=== PATIENT | male | born 1995 | race Caucasian/White ===

== ENCOUNTER 2020-09-21 09:52 | Outpatient (REF) | payer OTHER, SELFPAY ==
--- NOTE | ~2020-09-21 | FL_ITS ---
EXAMINATION: FL BARIUM SWALLOW CLINICAL INFORMATION: Dysphagia. COMPARISON: None TECHNIQUE: Barium swallow examination is performed using fluoroscopic evaluation in addition to multiple fluoroscopic spot views. The patient is imaged both upright and prone and using both thick and thin sulfate along with effervescent granules. Fluoroscopy time: 1.1 minutes DAP: 16.9 Gycm2 Images: 45 FINDINGS: Following oral administration of thick barium, turkey and thin barium, there is normal propagation of bolus from the oral cavity through the pharynx, esophagus into stomach without any evidence of obstruction, narrowing or stricture. On placing patient supine and prone lying and oral administration of thin barium, there is a prominent distal esophageal mucosa suggestive of esophagitis. On placing patient supine and prone, there is small hiatal hernia with mild gastroesophageal reflux. FL/FL barium swallow IMPRESSION: Small hiatal hernia with mild gastroesophageal reflux. Distal esophagitis. Consider endoscopy.
== END 2020-09-21 09:53 | disposition home or self-care (01) ==
LOC: HO.XRAY 09:52
PROVIDERS: PCP Physician Assistant; Visit Provider Physician Assistant
DX: R13.14 Dysphagia, pharyngoesophageal phase (principal)
CPT/HCPCS: 74220

== ENCOUNTER 2020-11-19 07:59 | Outpatient (REF) | payer OTHER, SELFPAY ==
[2020-11-19 13:31] LABS: H Pylori Breath Test Negative (Negative)
== END 2020-11-19 08:00 | disposition home or self-care (01) ==
LOC: HO.LNP 07:59
PROVIDERS: PCP Physician Assistant; Visit Provider Physician Assistant
DX: R13.14 Dysphagia, pharyngoesophageal phase (principal); K21.9 Gastro-esophageal reflux disease without esophagitis
CPT/HCPCS: 83013; 99202

== ENCOUNTER 2021-01-27 09:59 | Day surgery (SDC) | payer OTHER, SELFPAY ==
[2021-01-21 11:51] VITALS: BMI 29.7
--- NOTE | 2021-01-26 14:14 | HO.ANESPROP2 ---
Documented by User: Matilde Hodgson NP 01/26/21 14:15 HPI - Anesthesia Eval Consult details Narrative: 26yo M for Upper Endoscopy [facility] Active Problems Active Problems: All Active Problems (Updated 11/19/20 @ 08:37 by Em Garza PA-C) Acid reflux (Acute) Esophagitis (Acute) Folliculitis (Acute) Annual physical exam (Acute) Screening for hypothyroidism (Acute) Screening for diabetes mellitus (DM) (Acute) Dysphagia (Acute) Allergic rhinitis (Acute) Mild intermittent asthma (Acute) NICK (generalized anxiety disorder) (Acute) ADHD (attention deficit hyperactivity disorder) (Acute) Past Medical History Medical History ADHD (attention deficit hyperactivity disorder) NICK (generalized anxiety disorder) Mild intermittent asthma Family History Family History (Updated 11/19/20 @ 08:27 by Em Garza PA-C) Father Diabetes Mental problem HTN (hypertension) Mother No problems noted. Paternal Grandmother Cancer Lung cancer Maternal Grandmother Cancer Diabetes Paternal Grandfather Cancer Prostate CA Surgical History Surgical History History of removal of cyst History of shoulder surgery History of surgery Social History Social History Housing: House Alcohol intake: current Alcohol intake frequency: holidays/special occasions only Patient Tobacco Use Status: Never used Tobacco e-Cigarette/Vaping Use: Never Used Second Hand Smoke Exposure: Yes Use of substances other than those prescribed or required for medical reasons: No Are you DNR?: No Advance Directives: No Advance Directives Information Provided: Yes service: No Current occupational status: employed 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 Meds Allergies Allergy/AdvReac Type Severity Reaction Status Date / Time Sulfa (Sulfonamide Allergy Unknown rash Verified 01/27/21 10:06 Antibiotics) Home Medications Medication Instructions Recorded Confirmed Last Taken Type multivitamin 1 tab PO DAILY 01/14/20 09/15/20 Unknown History buspirone 10 mg tablet 10 mg PO TID 03/17/20 09/15/20 Unknown History clonazepam 1 mg tablet 1 mg PO DAILY PRN 03/17/20 09/15/20 Unknown History dextroamphetamine-amphetamine ER 1 cap PO BID 03/17/20 09/15/20 Unknown History 20 mg 24hr capsule,extend release buspirone 7.5 mg tablet 7.5 mg PO BID 11/19/20 Unknown History Exam Exam Date and Time: January 26, 2021 1414 Height,Weight and Vital Signs: Height 6 ft Weight 99.337 kg Assessment and Plan Assessment Anesthesia Assessment: Chart Reviewed Documented by User: Uma Mendoza MD 01/27/21 10:17 [facility] Past Medical History Medical History ADHD (attention deficit hyperactivity disorder) NICK (generalized anxiety disorder) Mild intermittent asthma Family History Family History (Updated 11/19/20 @ 08:27 by Em Garza PA-C) Father Diabetes Mental problem HTN (hypertension) Mother No problems noted. Paternal Grandmother Cancer Lung cancer Maternal Grandmother Cancer Diabetes Paternal Grandfather Cancer Prostate CA Family history of problems with anesthesia: No Surgical History Surgical History History of removal of cyst History of shoulder surgery History of surgery History of Problems with Anesthesia: No Social History Social History Housing: House Alcohol intake: current Alcohol intake frequency: holidays/special occasions only Patient Tobacco Use Status: Never used Tobacco e-Cigarette/Vaping Use: Never Used Second Hand Smoke Exposure: Yes Use of substances other than those prescribed or required for medical reasons: No Are you DNR?: No Advance Directives: No Advance Directives Information Provided: Yes service: No Current occupational status: employed 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 Meds Allergies Allergy/AdvReac Type Severity Reaction Status Date / Time Sulfa (Sulfonamide Allergy Unknown rash Verified 01/27/21 10:06 Antibiotics) Home Medications Medication Instructions Recorded Confirmed Last Taken Type multivitamin 1 tab PO DAILY 01/14/20 09/15/20 Unknown History buspirone 10 mg tablet 10 mg PO TID 03/17/20 09/15/20 Unknown History clonazepam 1 mg tablet 1 mg PO DAILY PRN 03/17/20 09/15/20 Unknown History dextroamphetamine-amphetamine ER 1 cap PO BID 03/17/20 09/15/20 Unknown History 20 mg 24hr capsule,extend release buspirone 7.5 mg tablet 7.5 mg PO BID 11/19/20 Unknown History Exam Airway Mallampati Class: I TM Dist: >3cm Neck ROM: Full Heart: rrr 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
[2021-01-27 10:16] VITALS: BP 138/81; PULSE 83; RESP 16; TEMP 36.7; O2SAT 98
[2021-01-27] MEDS: Lactated Ringers 1,000 ML 100 ML IVCONT (10:27)
--- NOTE | 2021-01-27 10:41 | MHC.SHP ---
Pre-Procedural Eval Section A Date of Service: 01/27/21 Section B Chief Complaint: Dysphagia Relevant Family History (Specify if Yes): No Relevant Social History: None Present Medications: see Short Stay Collaborative assessment Medical History: Significant History (ADHD (attention deficit hyperactivity disorder) NICK (generalized anxiety disorder) Mild intermittent asthma) History of Previous Operations: Relevant previous surgery/procedure and date(s) (shoulder surgery) Allergies: Allergies Allergy/AdvReac Type Severity Reaction Status Date / Time Sulfa (Sulfonamide Allergy Unknown rash Verified 01/27/21 10:06 Antibiotics) Review of Systems Sugical H&P ROS: Negative: Constitution, Cardiovascular, Respiratory, Neurological, Psychiatric, Hem-Onc, Allergic/Immunologic, Gastrointestinal, Genitourinary, Musculoskeletal, Integumentary, Endocrine and Eyes/Ears/Nose/Throat Exam Surgical H&P Exam: Normal: HEENT, Normal: Heart, Normal: Lungs, Normal: Extremities, Normal: Abdomen, Normal: Skin and Normal: Neurological Plan Diagnosis/Plan: Unchanged I have reviewed the history and physical and performed a pertinent physical examination on my patient. No changes have occurred unless specified.
--- NOTE | 2021-01-27 10:56 | P.BOP_ITS ---
Brief Operative Note Date of Service: 01/27/21 Pre-op diagnosis: dysphagia Post-op diagnosis: same Procedure: see op note Surgeon: Tomasz Evangelista MD Anesthesia: MAC Was an Production Specialist used for this Procedure?: No Estimated blood loss (mL): 0 Condition: stable Disposition: PACU
--- NOTE | 2021-01-27 10:57 | W.PM.OPN ---
Operative Note Operative Note Date of Service: 01/27/21 Narrative: Procedure Description: EGD FLEXIBLE TRANSORAL UPPER GASTROINTESTINAL ENDOSCOPY UPPER ENDOSCOPY Consent: Indications for the procedure and potential complications of bleeding, perforation, reaction to medications and missed diagnosis were discussed with the patient and informed consent was obtained. Instrument: Olympus GIF H 190 J mid size upper endoscope Monitoring: Vital signs and clinical assessment, continuous EKG monitoring, Pulse oximetry, Carbon Dioxide monitoring and blood pressure monitoring were done throughout the procedure. Procedure: The patient was placed in the left lateral decubitis position and pre-procedure medications were administered and a bite block was placed. The endoscope was inserted into the mouth and advanced under direct vision to the third part of duodenum. A careful inspection was made as the upper endoscope was withdrawn including a retroflexed examination of the proximal stomach; Findings and interventions are described below. Findings: Larynx:normal Esophagus: GE junction at 42 cm, diaphragm hiatus at 42 cm, LA grade C erosive esophagitis at GEJ with edematous and boggy appearing GEJ. There appeared to be a few islands of salmon pink tissue suspicious for barretts esophagus. A balloon was dilated from 18-19 mm at the GEj with few small tears noted. Random esophageal bx taken but not from gEJ. The esophagus had ridging and granular texture. Stomach: Patchy gastric erythema with few scars noted. Biopsies were obtained. Grade 2 flap valve on retroflexed examination of the cardia. Duodenum: Normal bulb and descending duodenum, bx taken Intervention: Biopsies as noted above, balloon dilation Impression/Findings: erosive esophagitis PLAN: High dose PPi for 3-4 months then repeat EGD to check for healing and Barretts stop omeprazole and use pantoprazole instead
[2021-01-27 11:20] VITALS: BP 118/63; PULSE 107; RESP 18; TEMP 37.3; O2SAT 97
[2021-01-27 11:34] VITALS: BP 132/73; PULSE 89; RESP 18; TEMP 37.2; O2SAT 97
[2021-01-27 11:49] VITALS: BP 121/72; PULSE 78; RESP 18; TEMP 36.5; O2SAT 98
== END 2021-01-27 12:25 | disposition home or self-care (01) ==
PROVIDERS: PCP Physician Assistant; Visit Provider Internal Medicine Gastroenterology
PROC: 0DJ08ZZ Inspection of Upper Intestinal Tract, Via Natural or Artificial Opening Endoscopic (ICD-10-PCS; CPT 43235; principal; 2021-01-27 11:20)
DX: R13.14 Dysphagia, pharyngoesophageal phase (principal); K21.9 Gastro-esophageal reflux disease without esophagitis; K20.80 Other esophagitis without bleeding; K22.89 Other specified disease of esophagus; K29.50 Unspecified chronic gastritis without bleeding; K44.9 Diaphragmatic hernia without obstruction or gangrene; Z79.51 Long term (current) use of inhaled steroids; Z88.2 Allergy status to sulfonamides; Z79.899 Other long term (current) drug therapy
CPT/HCPCS: 43249; 43239; 88305; 88342; C1726

== ENCOUNTER → 2021-02-26 09:13 | Outpatient (BNVA) | payer OTHER, SELFPAY | PROVIDERS: PCP Physician Assistant; Referring Provider Physician Assistant; Visit Provider Internal Medicine Gastroenterology | DX: R13.14 Dysphagia, pharyngoesophageal phase (principal); K20.90 Esophagitis, unspecified without bleeding | CPT/HCPCS: 99212 ==

== ENCOUNTER → 2021-09-27 12:44 | Outpatient (BNVA) | payer OTHER, SELFPAY | PROVIDERS: PCP Physician Assistant; Referring Provider Physician Assistant; Visit Provider Internal Medicine Gastroenterology | DX: R13.10 Dysphagia, unspecified (principal); K20.90 Esophagitis, unspecified without bleeding; Z79.899 Other long term (current) drug therapy | CPT/HCPCS: 99212 ==

== ENCOUNTER 2022-01-27 10:26 | Day surgery (SDC) | payer OTHER, SELFPAY ==
[2022-01-20 14:59] VITALS: BMI 30.5
--- NOTE | 2022-01-26 13:59 | HO.ANESPROP2 ---
Documented by User: Matilde Hodgson NP 01/26/22 14:00 HPI - Anesthesia Eval Consult details Narrative: 27yo M for Upper Endoscopy [facility] Active Problems Active Problems: All Active Problems (Updated 06/14/21 @ 13:58 by Wilton Liao PA-C) Allergic rhinitis (Acute) Dysphagia (Acute) Screening for diabetes mellitus (DM) (Acute) Screening for hypothyroidism (Acute) Annual physical exam (Acute) Folliculitis (Acute) Esophagitis (Acute) Acid reflux (Acute) Nausea (Acute) Mild intermittent asthma (Acute) Past Medical History Medical History ADHD (attention deficit hyperactivity disorder) NICK (generalized anxiety disorder) Mild intermittent asthma Family History Family History Father Diabetes Mental problem HTN (hypertension) Mother No problems noted. Paternal Grandmother Cancer Lung cancer Maternal Grandmother Cancer Diabetes Paternal Grandfather Cancer Prostate CA Family history of problems with anesthesia: No Surgical History Surgical History History of esophagogastroduodenoscopy (EGD) History of removal of cyst History of shoulder surgery History of surgery History of Problems with Anesthesia: No Social History Social History Housing: House Alcohol intake: current Alcohol intake frequency: holidays/special occasions only Patient Tobacco Use Status: Never used Tobacco e-Cigarette/Vaping Use: Never Used Second Hand Smoke Exposure: Yes Are you DNR?: No Advance Directives: No Advance Directives Information Provided: Yes service: No Current occupational status: employed 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 Meds Allergies Allergy/AdvReac Type Severity Reaction Status Date / Time Sulfa (Sulfonamide Allergy Unknown rash Verified 09/27/21 13:01 Antibiotics) Home Medications Medication Instructions Recorded Confirmed Last Taken Type multivitamin 1 tab PO DAILY 01/14/20 03/17/21 Unknown History buspirone 10 mg tablet 10 mg PO TID 03/17/20 03/17/21 Unknown History clonazepam 1 mg tablet 1 mg PO DAILY PRN anxiety 03/17/20 03/17/21 Unknown History dextroamphetamine-amphetamine ER 1 cap PO BID 03/17/20 03/17/21 Unknown History 20 mg 24hr capsule,extend release Exam Exam Date and Time: January 26, 2022 1359 Height,Weight and Vital Signs: Height 6 ft Weight 102.058 kg Assessment and Plan Assessment Anesthesia Assessment: Chart Reviewed Final Anesthetic Review Family History of Problems with Anesthesia: No History of Problems with Anesthesia: No Documented by User: Abbie oGuld MD 01/27/22 11:05 PMF Past Medical History Medical History ADHD (attention deficit hyperactivity disorder) NICK (generalized anxiety disorder) Mild intermittent asthma Family History Family History Father Diabetes Mental problem HTN (hypertension) Mother No problems noted. Paternal Grandmother Cancer Lung cancer Maternal Grandmother Cancer Diabetes Paternal Grandfather Cancer Prostate CA Surgical History Surgical History History of esophagogastroduodenoscopy (EGD) History of removal of cyst History of shoulder surgery History of surgery Social History Social History Housing: House Alcohol intake: current Alcohol intake frequency: holidays/special occasions only Patient Tobacco Use Status: Never used Tobacco e-Cigarette/Vaping Use: Never Used Second Hand Smoke Exposure: Yes Are you DNR?: No Advance Directives: No Advance Directives Information Provided: Yes service: No Current occupational status: employed 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 Meds Allergies Allergy/AdvReac Type Severity Reaction Status Date / Time Sulfa (Sulfonamide Allergy Unknown rash Verified 09/27/21 13:01 Antibiotics) Home Medications Medication Instructions Recorded Confirmed Last Taken Type multivitamin 1 tab PO DAILY 01/14/20 03/17/21 Unknown History buspirone 10 mg tablet 10 mg PO TID 03/17/20 03/17/21 Unknown History clonazepam 1 mg tablet 1 mg PO DAILY PRN anxiety 03/17/20 03/17/21 Unknown History dextroamphetamine-amphetamine ER 1 cap PO BID 03/17/20 03/17/21 Unknown History 20 mg 24hr capsule,extend release Exam Airway Mallampati Class: III TM Dist: >3cm Neck ROM: Full Loose/Missing/Broken Teeth: No Heart: RRR Lungs: CTA Assessment and Plan Assessment Anesthesia Assessment: Anesthesia Plan Discussed Final Anesthetic Review NPO: Yes ASA Class: II Final Preanesthetic Review: Meds/Allgs Chart Reviewed, Consent Obtained/Reviewed and Anes Risks/Benef Reviewed Patient Risk: Low Procedure Risk: Intermediate Anesthetic Plan Anesthetic Plan: MAC: Disposition: Standard PACU
[2022-01-27 10:28] VITALS: BP 154/93; PULSE 63; RESP 18; TEMP 36.1; O2SAT 99
[2022-01-27] MEDS: Lactated Ringers 1,000 ML 100 ML IVCONT (10:44)
--- NOTE | 2022-01-27 10:52 | P.HPSUR_ITS ---
Pre-Procedural Eval Section A Date of Service: 01/27/22 Section B Chief Complaint: reflux,esophagitis Relevant Family History (Specify if Yes): No Relevant Social History: None Present Medications: see Short Stay Collaborative assessment Medical History: Significant History (ADHD (attention deficit hyperactivity disorder) NICK (generalized anxiety disorder) Mild intermittent asthma) History of Previous Operations: Relevant previous surgery/procedure and date(s) (EGD) Allergies: Allergies Allergy/AdvReac Type Severity Reaction Status Date / Time Sulfa (Sulfonamide Allergy Unknown rash Verified 09/27/21 13:01 Antibiotics) Review of Systems Sugical H&P ROS: Negative: Constitution, Cardiovascular, Respiratory, Neurological, Psychiatric, Hem-Onc, Allergic/Immunologic, Gastrointestinal, Genitourinary, Musculoskeletal, Integumentary, Endocrine and Eye s/Ears/Nose/Throat Exam Surgical H&P Exam: Normal: HEENT, Normal: Heart, Normal: Lungs, Normal: Extremities, Normal: Abdomen, Normal: Skin and Normal: Neurological Plan Diagnosis/Plan: Unchanged I have reviewed the history and physical and performed a pertinent physical examination on my patient. No changes have occurred unless specified.
--- NOTE | 2022-01-27 11:26 | W.PM.OPN ---
Operative Note Operative Note Date of Service: 01/27/22 Narrative: Procedure Description: EGD Indication: [] Anesthesia: MAC FLEXIBLE TRANSORAL UPPER GASTROINTESTINAL ENDOSCOPY UPPER ENDOSCOPY Consent: Indications for the procedure and potential complications of bleeding, perforation, reaction to medications and missed diagnosis were discussed with the patient and informed consent was obtained. Instrument: Olympus GIF H 190 J mid size upper endoscope Monitoring: Vital signs and clinical assessment, continuous EKG monitoring, Pulse oximetry, Carbon Dioxide monitoring and blood pressure monitoring were done throughout the procedure. Procedure: The patient was placed in the left lateral decubitis position and pre-procedure medications were administered and a bite block was placed. The endoscope was inserted into the mouth and advanced under direct vision to the third part of duodenum. A careful inspection was made as the upper endoscope was withdrawn including a retroflexed examination of the proximal stomach; Findings and interventions are described below. Findings: Larynx:normal Esophagus: GE junction at 39 cm, diaphragm hiatus at 41 cm, consistent with small hiatal hernia 2 cm, non obstructive schatzki ring noted. Possible short segment barretts with mild esophagitis, bx taken. ringed appearance to esophagus bx taken from distal and proximal esophagus Stomach: Normal mucosa. Grade 3 flap valve on retroflexed examination of the cardia consistent with lax LES Duodenum: Normal bulb and descending duodenum, Intervention: Biopsies as noted above Impression/Findings: lax LES small hiatal hernia mild esophagitis schatzki ring possible barretts PLAN: cont with PPI consider repeat EGD in 1-2 yrs reflux precautions
[2022-01-27 11:30] VITALS: BP 116/70; PULSE 75; RESP 18; TEMP 36.2; O2SAT 99
[2022-01-27 11:45] VITALS: BP 127/70; PULSE 76; RESP 20; TEMP 36.6; O2SAT 98
== END 2022-01-27 12:23 | disposition home or self-care (01) ==
PROVIDERS: PCP Physician Assistant; Visit Provider Internal Medicine Gastroenterology
PROC: 0DJ08ZZ Inspection of Upper Intestinal Tract, Via Natural or Artificial Opening Endoscopic (ICD-10-PCS; CPT 43235; principal; 2022-01-27 11:30)
DX: K20.80 Other esophagitis without bleeding (principal); K20.90 Esophagitis, unspecified without bleeding; K21.9 Gastro-esophageal reflux disease without esophagitis; K44.9 Diaphragmatic hernia without obstruction or gangrene; K22.4 Dyskinesia of esophagus; K22.2 Esophageal obstruction; J45.20 Mild intermittent asthma, uncomplicated; F90.9 Attention-deficit hyperactivity disorder, unspecified type; F41.1 Generalized anxiety disorder; Z79.899 Other long term (current) drug therapy; Z88.2 Allergy status to sulfonamides
CPT/HCPCS: 43239; 88305; 88313

== ENCOUNTER 2022-06-25 12:30 | Outpatient (REF) | payer OTHER, SELFPAY ==
[2022-06-25 13:23] LABS: MANUAL DIFF FLAG NO
[2022-06-25 13:26] LABS: Basophils Absolute Auto 0.1 X10*3/uL (0.0-0.2); Basophils Percent Auto 1.3 % (0-2); Eosinophils Absolute Auto 0.8 X10*3/uL (0.0-0.4); Hematocrit 44.3 % (42.0-52.0); Hemoglobin 15.1 g/dl (14.0-18.0); Imm Gran Abs Auto 0.06 X10*3/uL (0.00-0.03); Imm Gran Pct Auto 0.7 % (0.0-0.4); Lymphocytes Absolute Auto 2.6 X10*3/uL (1.2-4.9); Lymphocytes Percent Auto 28.5 % (20-40); Mean Corpuscular HGB Conc 34.1 g/dl (31.0-36.0); Mean Corpuscular Hemoglobin 28.7 pg (27.0-33.0); Mean Corpuscular Volume 84.1 fL (80.0-98.0); Mean Platelet Volume 9.4 fL (9.4-12.4); Monocytes Absolute Auto 0.8 X10*3/uL (0.1-1.2); Monocytes Percent Auto 8.8 % (2-11); Neutrophils Absolute Auto 4.7 x10*3/uL (2.0-8.3); Neutrophils Percent Auto 51.7 % (45-73); Platelet Count 340 X10*3/uL (160-400); Red Blood Count 5.27 X10*6/uL (4.60-5.80); Red Cell Distribution Width 12.9 % (11.0-16.0); White Blood Count 9.1 X10*3/uL (4.8-10.8)
[2022-06-25 14:31] LABS: Alanine Aminotransferase 28 U/L (0-40); Albumin Level 4.6 g/dL (3.5-5.0); Alkaline Phosphatase 61 U/L (39-117); Anion Gap 15 (12-20); Aspartate Amino Transferase 23 U/L (5-37); Bilirubin Total 0.9 mg/dL (0.0-1.0); Blood Urea Nitrogen 16 mg/dL (9-16); Calcium 9.3 mg/dL (8.4-10.2); Carbon Dioxide 25 mmol/L (22-29); Chloride 105 mmol/L (96-108); Cholesterol 186 mg/dL; Estimated Glomerular Filt Rate > 60; Glucose Fasting 84 mg/dL (60-99); HDL Cholesterol 47 mg/dL; LDL Cholesterol Calculated 124 mg/dl; Potassium 4.3 mmol/L (3.3-5.1); Sodium 141 mmol/L (135-145); Total Protein 7.5 g/dL (6.5-8.0); Triglycerides 77 mg/dL
[2022-06-25 14:47] LABS: TSH reflex Free T4 1.03 uIU/mL (0.32-4.0); Vitamin D 25-OH Total 20.6 ng/mL (>30)
== END 2022-06-25 12:31 | disposition home or self-care (01) ==
LOC: HO.HMGCLDS 12:30
PROVIDERS: PCP Physician Assistant; Visit Provider Nurse Practitioner Family
DX: Z00.00 Encounter for general adult medical examination without abnormal findings (principal); Z13.29 Encounter for screening for other suspected endocrine disorder
CPT/HCPCS: 36415; 80053; 80061; 82306; 84443; 85025

== ENCOUNTER 2023-02-13 08:53 | Outpatient (AMB) | payer OTHER, SELFPAY ==
--- NOTE | 2023-02-13 08:54 | A.OFFVIS_ITS ---
Intake Intake Visit Reasons: 1 Year FU Intake Note: He states that he is doing very well and this is just a 1 year follow up. Allergies Sulfa (Sulfonamide Antibiotics) Allergy (Unknown, Verified 07/13/22 08:36) rash HPI 1 Year FU HPI Details 28 yr old m being called for f/u RECAP: Dysphagia for few years choking ba swallow: small hiatal hernia, esophagitis EGD done : 01/2021 erosive esophagitis LA grade C balloon dilation done BX: ?Active esophagitis with prominent eosinophils. Pantoprazole didn;t work really well Rept EGD: 2021 lax LES small hiatal hernia mild esophagitis schatzki ring possible barretts BX: active esophagitis , INTERIM: He has been doing well no more acid no choking been consistent with medications appetite is good no nausea or vomiting takes multivitamin daily EXAM: GENERAL: The patient is well developed and nontoxic. A/P: 1/ dysphagia, 2/2 to esophagitis possibl y Eoe vs GERD. clincially appears to be in remission, PLAN: 1/cont lansoprazole, 2/ EGD routine to check on healing --if ongoing inflamamtion then check RAST test 3/ periodic monitoring of b12, mag, vit D, iron indices --cont with Multivitamin and add D supplement 1000 units daily [facility] Medical History (Updated 07/13/22 @ 09:49 by Wilton Liao PA-C) Mild intermittent asthma NICK (generalized anxiety disorder) ADHD (attention deficit hyperactivity disorder) Surgical History History of esophagogastroduodenoscopy (EGD) History of removal of cyst History of shoulder surgery History of surgery Family History Father Diabetes Mental problem HTN (hypertension) Mother No problems noted. 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 Cognitive needs: No Hearing needs: No Vision needs: No Assessment & Plan Assessment & Plan (1) Dysphagia: Code(s): R13.10 - Dysphagia, unspecified Qualifiers: Dysphagia type: pharyngoesophageal phase Qualified Code(s): R13.14 - Dysphagia, pharyngoesophageal phase Plan: PLAN: 1/cont lansoprazole, 2/ EGD routine to check on healing --if ongoing inflamamtion then check RAST test 3/ periodic monitoring of b12, mag, vit D, iron indices --cont with Multivitamin and add D supplement 1000 units daily (2) Esophagitis: Code(s): K20.90 - Esophagitis, unspecified without bleeding Plan: PLAN: 1/cont lansoprazole, 2/ EGD routine to check on healing --if ongoing inflamamtion then check RAST test 3/ periodic monitoring of b12, mag, vit D, iron indices --cont with Multivitamin and add D supplement 1000 units daily Telehealth Telehealth Location of provider rendering services: practice address Location of patient: address on file Patient Identification confirmed using: Name, : Yes Telehealth method: video Patient verbally consented to treatment: Yes Patient verbally consented to billing insurance company: Yes Patient informed of any privacy concerns related to visit: Yes Minutes spent on Phone/Video with Pt.: 6 Coding Level of Care Code Tele Est Pt Level 3 ([id number]) Diagnoses Pharyngoesophageal dysphagia R13.14 Dysphagia type: pharyngoesophageal phase Esophagitis K20.90
== END 2023-02-13 09:33 | disposition home or self-care (01) ==
LOC: HO.HGI 08:53
PROVIDERS: PCP Physician Assistant; Visit Provider Internal Medicine Gastroenterology
DX: R13.14 Dysphagia, pharyngoesophageal phase (principal); K20.90 Esophagitis, unspecified without bleeding
CPT/HCPCS: 99213

== ENCOUNTER → 2023-02-13 08:53 | Outpatient (BNVA) | payer OTHER, SELFPAY | PROVIDERS: PCP Physician Assistant; Visit Provider Internal Medicine Gastroenterology ==

== ENCOUNTER 2023-06-29 07:54 | Outpatient (AMB) | payer OTHER, SELFPAY ==
[2023-06-29 07:58] VITALS: BP 130/76; PULSE 80; O2SAT 98; BMI 33.6
--- NOTE | 2023-06-29 07:58 | A.OFFPC_ITS ---
Vital Signs 3 06/29/23 07:58 Height 6 ft Weight 248 lb BMI 33.6 BP 130/76 Blood Pressure Location Lt brachial Position Sitting Pulse 80 Pulse Source Pulse Oximeter Pulse Oximetry (%) 98 Oxygen Delivery Method Room Air Intake Visit Reasons: Annual Exam Allergies Sulfa (Sulfonamide Antibiotics) Allergy (Unknown, Verified 06/29/23 08:14) rash Medication List - Last Reconciled 06/29/23 by Wilton Liao PA-C albuterol sulfate 90 mcg/actuation (Ventolin HFA) 1 inh inhalation QID PRN albuterol sulfate 2.5 mg (3 mL) inhalation Q6H PRN cholecalciferol (vitamin D3) 25 mcg PO DAILY clonazepam 1 mg PO DAILY PRN dextroamphetamine-amphetamine 20 mg ER 1 cap PO BID fluticasone propionate 50 mcg/actuation 1 spray intranasal DAILY lansoprazole 30 mg PO DAILY miscellaneous medical supply 1 ea miscellaneous DAILY montelukast (Singulair) 10 mg PO BEDTIME 90 days multivitamin 1 tab PO DAILY triamcinolone acetonide 0.1% 1 appl topical DAILY 15 days Tobacco use date assessed: 06/29/23 Dental Screening Dental Screen Date: 06/29/23 Did you have a dental visit in the last 12 months?: Yes Did you have a dental problem in the last 6 months where you did not have access to dental care?: No Was dental information given to patient?: Patient has dentist HPI Annual Exam 2 HPI0 Details Patient is a 28 -year-old male here today for a routine annual physical.? Patient has a past medical history significant for ADHD, moderate persistent asthma, esophagitis. 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 He denies any recent trauma to his right knee. Has been wearing a knee brace which has helped stabilize his knee and reduce his pain.. GERD: underwent EGD due to his dysphagia and was found to have erosive esophagitis.? He continues on lantoprazole with good effect. Has been swallowing much better, also has made better dietary changes. Biopsies somewhat consistent with eosinophilic esophagitis .. Moderate persistent asthma:? He reports his asthma has been fairly well controlled, has been having difficulty getting maintenance inhaler covered through insurance will try generic Advair During cold weather months he does have mild exacerbations.? He does need refills on his albuterol. ADHD:? Now followed by a psychiatrist whom manages his ADHD medication ? Generalized anxiety disorder:? He does report his anxiety is fairly well controlled though does have breakthrough panic.? His diatribe stab in weaning his dose of clonazepam to 10 tablets per month and he feels he needs more.? He will follow-up with Psychiatry above better management of his generalized anxiety Vaccines: Up-to-date with COVID vaccine, tetanus vaccine and flu vaccine, needs pneumonia vaccine [facility] Medical History Mild intermittent asthma NICK (generalized anxiety disorder) ADHD (attention deficit hyperactivity disorder) Surgical History History of esophagogastroduodenoscopy (EGD) History of surgery History of shoulder surgery History of removal of cyst Family History Father Diabetes Mental problem HTN (hypertension) Mother No problems noted. 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 1. Little interest or pleasure in doing things: not at all 2. Feeling down, depressed, or hopeless: not at all 3. Trouble falling or staying asleep, or sleeping too much: not at all 4. Feeling tired or having little energy: not at all 5. Poor appetite or overeating: not at all 6. Feeling bad about yourself - or that you are a failure or have let yourself or your family down: not at all 7. Trouble concentrating on things, such as reading the newspaper or watching television: not at all 8. Moving or speaking so slowly that other people could have noticed. Or the opposite - being so fidgety or restless that you have been moving around a lot more than usual: not at all 9. Thoughts that you would be better off or of hurting yourself in some way: not at all Total score: 0 Depression Screening Interpretation: Negative Depression Screening Done: Yes 70971 - PHQ-9 Billing: Yes Source: Developed by Drs. Scotty Frazier, Zoey Burger, Nicolas Mayfield and colleagues, with an educational geeta from [employer]. Thrive Questionnaire Date Thrive assessed: 06/29/23 I am a: Patient What is your living situation today?: I have a steady place to live Within the past 12 months, did the food you bought not last and you didn't have the money to get more?: Never true Within the past 12 months, did you worry whether your food would run out before you got money to buy more?: Never true Do you have trouble paying for medicines?: No Do you have trouble getting transportation to medical appointments?: No Do you have trouble paying your heating and electricity bill?: No Do you have trouble taking care of your child, family member or friend?: No Do you have trouble with day-to-day activities such as bathing, preparing meals, shopping, managing finances, etc.?: No Are you currently unemployed and looking for a job?: No Are you interested in more education?: No Currently or been in a relationship where the following occur: no concerns reported THRIVE Score: 0 AUDIT C Alcohol Use Questionnaire (AUDIT-C) 1. How often do you have a drink containing alcohol?: 2-3 times a week 2. How many drinks containing alcohol do you have on a typical day when you are drinking?: 1 or 2 3. How often do you have six or more drinks on one occasion?: Never Total Score: 3 Score Reviewed/Action Taken: No NICK-7 AMB Questionnaire NICK-7 Date NICK - 7 assessed: 06/29/23 Feeling nervous, anxious, or on edge: 0 = Not at all Not being able to stop or control worryin = Not at all Worrying too much about different things: 0 = Not at all Trouble relaxin = Not at all Being so restless that it is hard to sit still: 0 = Not at all Becoming easily annoyed or irritable: 0 = Not at all Feeling afraid as if something awful might happen: 0 = Not at all Total NICK-7 score (0-4 normal; 5-9 mild; 10-14 moderate; 15-21 severe): 0 Source: Developed by Drs. Scotty Frazier, Zoey Burger, Nicolas Mayfield and colleagues, with an educational geeta from [employer]. NICK-7 Assessment Billing NICK-7 Assessment Tool: NICK-7 Assessment 21155 ACT Questionnaire In the past 4 weeks, how much of the time did your asthma keep you from getting as much done at work, school or at home?: None of the time During the past 4 weeks, how often have you had shortness of breath?: 1-2 times a week During the past 4 weeks, how often did your asthma symptoms wake you up at night or earlier than usual in the morning?: Not at all During the past 4 weeks, how often have you had to use your rescue inhaler or nebulizer medication?: Once a week or less How would you rate your asthma control during the past 4 weeks?: Well controlled ACT Interpretation: Negative Score: 22 Review of Systems Const Denies body aches, Denies chills, Denies excessive sweating, Denies fatigue, Denies fever(s) and Denies headache(s) Eyes Denies blurry vision ENT Denies dysphagia, Denies vertigo, Denies dizziness, Denies headache(s), Denies hearing loss and Denies tinnitus Card Denies chest pain, Denies chest pain with activity, Denies syncope, Denies irregular heart rhythm and Denies dyspnea Resp Denies chest congestion, Denies cough, Denies hemoptysis, Denies dyspnea and Denies wheezing GI Denies abdominal pain, Denies melena, Denies hematochezia, Denies coffee ground emesis, Denies dysphagia, Denies diarrhea, Denies nausea and Denies vomiting Denies difficulty urinating, Denies dysuria, Denies urinary frequency, Denies urinary hesitancy and Denies urinary urgency Musc Denies arthralgias, Denies limited range of motion, Denies muscle cramps and Denies muscle weakness Skin/Breast Denies rash and Denies skin ulcer Neuro Denies Abnormal speech present, Denies confusion, Denies vertigo, Denies dizziness, Denies syncope, Denies headache(s), Denies memory loss and Denies seizure-like activity Psych Denies anxiety, Denies confusion, Denies depression, Denies memory loss, Denies panic attacks and Denies paranoia Endo Denies excessive sweating, Denies fatigue, Denies flushing, Denies polydipsia and Denies polyuria Aller/Immun Denies wheezing Physical exam (Primary Care) Vital Signs: Last Vital Signs Pulse 80 06/29/23 07:58 BP 130/76 06/29/23 07:58 Pulse Ox 98 06/29/23 07:58 Oxygen Delivery Method Room Air 06/29/23 07:58 BMI result Body Mass Index 33.6 BMI Assessment/Plan discussion: High BMI High, discussed plan: lifestyle, weight reduction, dietary and physical activity Tobacco/Smoking Status: Tobacco use Status Tobacco use date assessed 06/29/23 06/29/23 08:05 Patient Tobacco Use Status Never used Tobacco 06/29/23 08:05 e-Cigarette/Vaping Use Never Used 06/29/23 08:05 PHQ-9: PHQ-9 Score PHQ-9: Total score 0 06/29/23 08:05 Depression Screening Interpretation: Negative Thrive Assessment: Date of Thrive Assessment Date Thrive assessed 06/29/23 06/29/23 08:05 Currently or been in a relationship where the following occur: no concerns reported Const Other: Obese General: cooperative, comfortable, no acute distress, alert and awake; No confusion Orientation/consciousness: oriented to person, oriented to place, patient oriented x3 and No confusion HENMT Head: Yes normocephalic Ears: external ears normal and TM's normal bilaterally Face and sinus: No sinus tenderness Mouth: Normal oral and palatal mucosa present and tongue normal Teeth and gingiva: dentition normal and gingiva normal Throat: Yes posterior oropharynx normal, Yes tonsils normal and Yes uvula midline Eyes Conjunctivae: conjunctivae normal Sclerae: sclerae normal Pupils: Equal, round and reactive pupils present EOM: EOMs intact bilaterally Direct Ophthalmoscopy: No no photophobia Neck Neck: Yes no lymphadenopathy, No tender and Yes no JVD Thyroid: Thyroid normal Carotids: no bruits Chest Chest palpation & inspection: no tenderness Resp Effort & Inspection: normal respiratory effort, no audible wheezes, not labored and no stridor Auscultation: no crackles, no rales, no rhonchi and no wheezes Cardio Jugular venous distension: no JVD Rate: regular rate, not bradycardic and not tachycardic Rhythm: regular rhythm Bruits: no carotid bruits Peripheral pulses: Peripheral pulses 2+ throughout GI Inspection: Yes normal to inspection, No abdominal wall ecchymosis and No visible herniation Palpation (GI): Soft to palpation, nontender, no guarding, not rigid and No hepatosplenomegaly present Auscultation: normoactive bowel sounds General: Yes no CVA tenderness Back/Spine/Pelvis Back: no CVA tenderness and No back tenderness Cervical Spine: cervical ROM normal Thoracic/Lumbar Spine: thoracic and lumbar spine normal to inspection, straight leg raise negative bilaterally, No thoraco-lumbar ROM limited and No lumbar spinal tenderness Skin Lesions: no lesions Rashes: no rashes Wounds: no wounds Full body images: 2 1. SMALL FLAT MACULAR SKIN LESION OVER THE LEFT FLANK-HAS BEEN EVIDENT FOR YEARS Neuro General: oriented to person, oriented to place, patient oriented x3, CN's II-XI intact bilaterally and No confusion Cranial nerves: Yes Equal, round and reactive pupils present and Yes Normal accommodation reflex present Cognition (Neuro): normal cognition Speech: No Abnormal speech present Gait exam (Neuro): Normal gait present Motor exam (neuro): 5/5 motor strength present throughout Extrem Right upper extremity: full ROM; no cyanosis Left upper extremity: full ROM; no cyanosis Right lower extremity: no edema Left lower extremity: no edema Psych Appearance: grossly normal Mental Status: mental status grossly normal Affect: normal affect Attitude: cooperative Thought process: Normal thought process present Assessment and Plan Assessment & Plan (1) Annual physical exam: Code(s): Z00.00 - Encounter for general adult medical examination without abnormal findings (2) Esophagitis: Code(s): K20.90 - Esophagitis, unspecified without bleeding Plan: Patient continues to follow gastroenterology esophagitis has been better since placed on PPI therapy. Did biopsies somewhat consistent with seen if anicteric esophagitis. . (3) Asthma: Code(s): J45.909 - Unspecified asthma, uncomplicated Qualifiers: Asthma severity: mild Asthma persistence: persistent Asthma complication type: uncomplicated Qualified Code(s): J45.30 - Mild persistent asthma, uncomplicated Plan: Patient with mild persistent asthma somewhat related to his allergies as well. Has been having a difficult time getting a maintenance inhaler covered through insurance. Will try generic Advair. . Denies any recent exacerbations for nighttime awakenings with asthma symptoms. (4) ADHD (attention deficit hyperactivity disorder): Code(s): F90.9 - Attention-deficit hyperactivity disorder, unspecified type Qualifiers: Attention deficit-hyperactivity disorder type: predominantly inattentive Qualified Code(s): F90.0 - Attention-deficit hyperactivity disorder, predominantly inattentive type Plan: Continues to follow mental therapist and a psychiatrist who manages his mental health medications. He feels stable on current doses of medication. (5) Obese: Code(s): E66.9 - Obesity, unspecified Qualifiers: Obesity type: due to excess calories Obesity classification: adult class 1 (BMI 30 - 34.9) Serious obesity comorbidity presence: without serious comorbidity Body mass index: BMI 31.0-31.9 Qualified Code(s): E66.09 - Other obesity due to excess calories; Z68.31 - Body mass index [BMI] 31.0-31.9, adult Plan: Patient does understand his BMI is over 30 will work on being more physically active and adapt to better eating habits to reduce his weight (6) NICK (generalized anxiety disorder): Code(s): F41.1 - Generalized anxiety disorder Plan: Patient's generalized anxiety disorder well managed with current mental health medications. He does speak with a mental health therapist and psychiatrist on a monthly basis. (7) Skin lesion of chest wall: Code(s): L98.9 - Disorder of the skin and subcutaneous tissue, unspecified Plan: Has been concerned about a skin lesion over his left flank that he has had for years. Did have some signs and symptoms of skin infection in the area that he treated with topical antibiotic. He would like to see a animal shelter supervisor for possible biopsy. Orders: Orders 2 Complete Blood Count no Diff Today J45.30 - Mild persistent asthma, uncomplicated XR knee RT 3V Today M25.361 - Other instability, right knee Comprehensive [place]. Panel Fast Today Z13.1 - Encounter for screening for diabetes mellitus Referrals 2 Dermatology Referral L98.9 - Disorder of the skin and subcutaneous tissue, unspecified Medications: New 2 fluticasone propion-salmeterol 115-21 mcg/actuation 2 puffs inhalation BID 30 days 12 grams 3RF J45.30 - Mild persistent asthma, uncomplicated Patient Instructions: Goals: Control asthma Barriers: Insurance coverage for maintenance inhaler Coding Level of Care Code Est Pt Prev Care 18-39y([id number]) Diagnoses Annual physical exam Z00.00 Esophagitis K20.90 Mild persistent asthma without complication J45.30 Asthma severity: mild Asthma persistence: persistent Asthma complication type: uncomplicated Attention deficit hyperactivity disorder (ADHD), predominantly inattentive type F90.0 Attention deficit-hyperactivity disorder type: predominantly inattentive Class 1 obesity due to excess calories without serious comorbidity with body mass index (BMI) of 31.0 to 31.9 in adult E66.09; Z68.31 Obesity type: due to excess calories Obesity classification: adult class 1 (BMI 30 - 34.9) Serious obesity comorbidity presence: without serious comorbidity Body mass index: BMI 31.0-31.9 NICK (generalized anxiety disorder) F41.1 Skin lesion of chest wall L98.9 Additional Codes NICK-7 Assessment Billing - NICK-7 Assessment Tool: NICK-7 Assessment [id number] ([id number])
== END 2023-06-29 08:32 | disposition home or self-care (01) ==
PROVIDERS: PCP Physician Assistant; Visit Provider Physician Assistant
DX: Z00.00 Encounter for general adult medical examination without abnormal findings (principal); K20.90 Esophagitis, unspecified without bleeding; J45.30 Mild persistent asthma, uncomplicated; F90.0 Attention-deficit hyperactivity disorder, predominantly inattentive type; E66.09 Other obesity due to excess calories; Z68.31 Body mass index [BMI] 31.0-31.9, adult; F41.1 Generalized anxiety disorder; L98.9 Disorder of the skin and subcutaneous tissue, unspecified
CPT/HCPCS: 99395

== ENCOUNTER 2024-02-13 09:48 | Day surgery (SDC) | payer OTHER, SELFPAY ==
[2024-02-07 14:09] VITALS: BMI 33.6
--- NOTE | 2024-02-13 09:56 | P.HPSUR_ITS ---
Pre-Procedural Eval Section A - 24 Hr Update-Section A only Date of Service: 02/13/24 Section B - Complete if H&P > 30 days Chief Complaint: Esophagitis, unspecified without bleeding Relevant Family History (Specify if Yes): No Relevant Social History: None Present Medications: see Short Stay Collaborative assessment Medical History: Significant History ( Mild intermittent asthma NICK (generalized anxiety disorder) ADHD (attention deficit hyperactivity disorder)) History of Previous Operations: Relevant previous surgery/procedure and date(s) (History of esophagogastroduodenoscopy (EGD) History of removal of cyst History of shoulder surgery History of surgery) Allergies: Allergies Allergy/AdvReac Type Severity Reaction Status Date / Time Sulfa (Sulfonamide Allergy Unknown rash Verified 06/29/23 08:14 Antibiotics) Review of Systems Sugical H&P ROS: Negative: Constitution, Cardiovascular, Respiratory, Neurological, Psychiatric, Hem-Onc, Allergic/Immunologic, Gastrointestinal, Genitourinary, Musculoskeletal, Integumentary, Endocrine and Eyes/Ea rs/Nose/Throat Exam Surgical H&P Exam: Normal: HEENT, Normal: Heart, Normal: Lungs, Normal: Extremities, Normal: Abdomen, Normal: Skin and Normal: Neurological Plan Diagnosis/Plan: Unchanged I have reviewed the history and physical and performed a pertinent physical examination on my patient. No changes have occurred unless specified. Time Spent With Patient Time: Total time managing care of this patient today ____ minutes.
[2024-02-13 10:12] VITALS: BP 150/87; PULSE 78; RESP 20; TEMP 36.9; O2SAT 97
[2024-02-13] MEDS: Lactated Ringers 1,000 ML 50 ML IVCONT (10:42)
--- NOTE | 2024-02-13 10:48 | P.CONAN_ITS ---
HPI - Anesthesia Eval Consult details Narrative: 29 yo make patient for EGD [facility] Active Problems Active Problems: All Active Problems (Updated 06/29/23 @ 08:27 by Wilton Liao PA-C) Skin lesion of chest wall (Acute) NICK (generalized anxiety disorder) (Acute) Obese (Acute) Right knee buckling (Acute) ADHD (attention deficit hyperactivity disorder) (Acute) Asthma (Acute) Low vitamin D level (Acute) Obesity (BMI 30.0-34.9) (Acute) Allergic rhinitis (Acute) Dysphagia (Acute) Screening for diabetes mellitus (DM) (Acute) Screening for hypothyroidism (Acute) Annual physical exam (Acute) Folliculitis (Acute) Esophagitis (Acute) Acid reflux (Acute) Nausea (Acute) Mild intermittent asthma (Acute) Past Medical History Medical History Mild intermittent asthma NICK (generalized anxiety disorder) ADHD (attention deficit hyperactivity disorder) Family History Family History Father Diabetes Mental problem HTN (hypertension) Mother No problems noted. Paternal Grandmother Cancer Lung cancer Maternal Grandmother Cancer Diabetes Paternal Grandfather Cancer Prostate CA Family history of problems with anesthesia: No Surgical History Surgical History History of esophagogastroduodenoscopy (EGD) History of surgery History of shoulder surgery History of removal of cyst History of Problems with Anesthesia: No Social History Social History Housing: House Alcohol intake: current Alcohol intake frequency: a few times a week Alcohol type: beer Patient Tobacco Use Status: Never used Tobacco e-Cigarette/Vaping Use: Never Used Second Hand Smoke Exposure: Yes Have you been hit, kicked, punched, or otherwise hurt by someone within the past year? 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 Cognitive needs: No Hearing needs: No Vision needs: No Meds Allergies Allergy/AdvReac Type Severity Reaction Status Date / Time Sulfa (Sulfonamide Allergy Unknown rash Verified 06/29/23 08:14 Antibiotics) Active Medications: Current Medications Lactated Ringer's (Lr) 1,000 mls @ 50 mls/hr IVCONT .Q20H SOPHIA Last Admin: 02/13/24 10:42 Dose: 50 mls/hr Home Medications ?Medication ?Instructions ?Recorded ?Confirmed ?Last Taken ?Type multivitamin 1 tab PO DAILY 01/14/20 06/29/23 02/12/24 History clonazepam 1 mg tablet 1 mg PO DAILY PRN anxiety 03/17/20 06/29/23 02/12/24 History dextroamphetamine-amphetamine ER 1 cap PO BID 03/17/20 06/29/23 02/12/24 History 20 mg 24hr capsule,extend release Exam Height,Weight and Vital Signs: Height 6 ft Weight 112.491 kg Last Vital Signs Temp 98.5 F 02/13/24 10:12 Pulse 78 02/13/24 10:12 Resp 20 02/13/24 10:12 BP 150/87 H 02/13/24 10:12 Pulse Ox 97 02/13/24 10:12 O2 Del Method Room Air, Mechanical Ventilation 02/13/24 10:12 Airway Mallampati Class: II TM Dist: >3cm Neck ROM: Full Loose/Missing/Broken Teeth: No Heart: RRR Lungs: CTAB Assessment and Plan Assessment Anesthesia Assessment: Anesthesia Plan Discussed and Chart Reviewed Final Anesthetic Review Family History of Problems with Anesthesia: No History of Problems with Anesthesia: No NPO: Yes ASA Class: II Final Preanesthetic Review: No Changes in Pt Med Stat, Meds/Allgs Chart Reviewed, Consent Obtained/Reviewed and Anes Risks/Benef Reviewed Patient Risk: Low Procedure Risk: Low Assessment/Block/Sedation in SS: Assess/Block/Sedation-SS Anesthetic Plan Anesthetic Plan: TIVA Disposition: Standard PACU
--- NOTE | 2024-02-13 11:06 | W.PM.OPN ---
Operative Note Operative Note Date of Service: 02/13/24 Narrative: Procedure Description: EGD Indication: GERD Anesthesia: MAC FLEXIBLE TRANSORAL UPPER GASTROINTESTINAL ENDOSCOPY UPPER ENDOSCOPY Consent: Indications for the procedure and potential complications of bleeding, perforation, reaction to medications and missed diagnosis were discussed with the patient and informed consent was obtained. Instrument: Olympus GIF H 190 J mid size upper endoscope Monitoring: Vital signs and clinical assessment, continuous EKG monitoring, Pulse oximetry, Carbon Dioxide monitoring and blood pressure monitoring were done throughout the procedure. Procedure: The patient was placed in the left lateral decubitis position and pre-procedure medications were administered and a bite block was placed. The endoscope was inserted into the mouth and advanced under direct vision to the third part of duodenum. A careful inspection was made as the upper endoscope was withdrawn including a retroflexed examination of the proximal stomach; Findings and interventions are described below. Findings: Larynx:normal Esophagus: GE junction at 39 cm, diaphragm hiatus at 41 cm, consistent with small hiatal hernia 2 cm, with mild esophagitis. Ringed appearance to esophagus bx taken from distal and proximal esophagus and GEJ. Stomach: localized patches of erythema in distal body, post wall, bx taken Grade 3 flap valve on retroflexed examination of the cardia consistent with lax LES Duodenum: Normal bulb and descending duodenum, Intervention: Biopsies as noted above Impression/Findings: small hiatal hernia mild esophagitis gastritis PLAN: check nsaid hx and treat if pos for h pylori cont with PPI consider repeat EGD in 1-2 yrs reflux precautions if concern for EoE check RAST
[2024-02-13 11:14] VITALS: BP 166/104; PULSE 81; RESP 16; TEMP 36.6; O2SAT 98
== END 2024-02-13 12:10 | disposition home or self-care (01) ==
PROVIDERS: PCP Physician Assistant; Visit Provider Internal Medicine Gastroenterology
PROC: 0DJ08ZZ Inspection of Upper Intestinal Tract, Via Natural or Artificial Opening Endoscopic (ICD-10-PCS; CPT 43235; principal; 2024-02-13 11:40)
DX: K29.50 Unspecified chronic gastritis without bleeding (principal); K20.80 Other esophagitis without bleeding; K21.9 Gastro-esophageal reflux disease without esophagitis; K44.9 Diaphragmatic hernia without obstruction or gangrene; J45.20 Mild intermittent asthma, uncomplicated; F41.1 Generalized anxiety disorder; F90.9 Attention-deficit hyperactivity disorder, unspecified type; Z79.899 Other long term (current) drug therapy; Z88.2 Allergy status to sulfonamides; Z98.890 Other specified postprocedural states
CPT/HCPCS: 43239; 88305; 88313; 88342; J1100; J1596; J2003; J2704

== ENCOUNTER → 2024-02-13 09:48 | Outpatient (BNV) | payer OTHER, SELFPAY | PROVIDERS: PCP Physician Assistant; Visit Provider Internal Medicine Gastroenterology | DX: K21.00 Gastro-esophageal reflux disease with esophagitis, without bleeding (principal); K29.70 Gastritis, unspecified, without bleeding | CPT/HCPCS: 43239 ==

== ENCOUNTER 2024-11-04 10:04 | Outpatient (AMB) | payer OTHER, SELFPAY ==
--- NOTE | 2024-11-04 10:33 | MHC.OFFVIS ---
Intake Visit Reasons: med renewal Intake Note: Michael presents as a video call to have a routine appt to continute medications. CC: States he is not having any concerns at this time. Area Counselor Required: No Allergies Sulfa (Sulfonamide Antibiotics) Allergy (Unknown, Verified 11/04/24 10:33) rash HPI HPI med renewal: Details: 29 yr old m being called for f/u RECAP: Dysphagia for few years choking ba swallow: small hiatal hernia, esophagitis EGD done : 01/2021 erosive esophagitis LA grade C balloon dilation done BX: ?Active esophagitis with prominent eosinophils. Pantoprazole didn;t work really well Rept EGD: 2021 lax LES small hiatal hernia mild esophagitis schatzki ring possible barretts BX: active esophagitis , EGD: 2023 small hiatal hernia mild esophagitis gastritis path: active esophagitis on path INTERIM: he is taking lansoprazole, he denies any sx appetite is good no nausea or vomiting no abdominal pain EXAM: GENERAL: The patient is well developed and nontoxic. A/P: 1/ dysphagia, 2/2 to esophagitis possibly Eoe vs GERD. clincially appears to be in remission, PLAN: 1/cont lansoprazole, 2/ EGD routine to check on improvement -- 3/ periodic monitoring of b12, mag, vit D, iron indices --cont with Multivitamin and add D supplement 1000 units daily 4/ check rast testing [facility] Medical History Mild intermittent asthma NICK (generalized anxiety disorder) ADHD (attention deficit hyperactivity disorder) Surgical History History of esophagogastroduodenoscopy (EGD) History of surgery History of shoulder surgery History of removal of cyst Family History Father Diabetes Mental problem HTN (hypertension) Mother No problems noted. 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 Cognitive needs: No Hearing needs: No Vision needs: No Telehealth Telehealth Telehealth Platform: [employer] Location of provider rendering services: practice address Location of patient: address on file Patient Identification confirmed using: Name, : Yes Telehealth method: video Patient verbally consented to treatment: Yes Patient verbally consented to billing insurance company: Yes Patient informed of any privacy concerns related to visit: Yes Minutes spent on Phone/Video with Pt.: 6 Assessment & Plan Assessment & Plan (1) Esophagitis: Code(s): K20.90 - Esophagitis, unspecified without bleeding Category: Medical Plan: as above Coding Level of Care Code Tele Est Pt Level 3 (90170) Diagnoses Esophagitis K20.90
== END 2024-11-04 13:48 | disposition home or self-care (01) ==
LOC: HO.HGI 10:04
PROVIDERS: PCP Physician Assistant; Visit Provider Internal Medicine Gastroenterology
DX: K20.90 Esophagitis, unspecified without bleeding (principal)
CPT/HCPCS: 98004